=== PATIENT | male | born 1945 | race Caucasian/White ===

== ENCOUNTER → 2016-09-13 | Outpatient (CLI) | payer MEDICARE, BC, OTHER ==
[2016-09-13 07:08] LABS: ALBUMIN 3.8 GM/DL (3.2-5.2); ALBUMIN/GLOBULIN RATIO 1.36 (1.00-1.93); ALKALINE PHOSPHATASE 91 U/L (45-117); ALT/SGPT 38 U/L (12-78); ANION GAP 6 MEQ/L (8-16); AST/SGOT 22 U/L (15-37); BILIRUBIN,TOTAL 0.7 MG/DL (0.2-1.0); BLOOD UREA NITROGEN 19 MG/DL (7-18); CALCIUM LEVEL 9.1 MG/DL (8.8-10.2); CARBON DIOXIDE LEVEL 30 MEQ/L (21-32); CHLORIDE LEVEL 100 MEQ/L (98-107); CHOLESTEROL LEVEL 102 MG/DL (<200); CREATININE FOR GFR 0.95 MG/DL (0.70-1.30); GLOMERULAR FILTRATION RATE > 60.0 (>42); GLUCOSE, FASTING 223 MG/DL (83-110); POTASSIUM SERUM 4.3 MEQ/L (3.5-5.1); SODIUM LEVEL 136 MEQ/L (136-145); TOTAL PROTEIN 6.6 GM/DL (6.4-8.2); TRIGLYCERIDES LEVEL 281 MG/DL (<150)
== END ==
LOC: M LAB 06:01
PROVIDERS: ATTEND Emergency Medicine
DX: E11.9 Type 2 diabetes mellitus without complications (principal); E55.9 Vitamin D deficiency, unspecified

== ENCOUNTER → 2017-01-15 | Outpatient (CLI) | payer MEDICARE, BC, OTHER ==
[2017-01-15 07:17] LABS: ALBUMIN 3.8 GM/DL (3.2-5.2); ALBUMIN/GLOBULIN RATIO 1.19 (1.00-1.93); ALKALINE PHOSPHATASE 85 U/L (45-117); ALT/SGPT 33 U/L (12-78); ANION GAP 5 MEQ/L (8-16); AST/SGOT 16 U/L (15-37); BILIRUBIN,TOTAL 0.7 MG/DL (0.2-1.0); BLOOD UREA NITROGEN 14 MG/DL (7-18); CALCIUM LEVEL 8.9 MG/DL (8.8-10.2); CARBON DIOXIDE LEVEL 32 MEQ/L (21-32); CHLORIDE LEVEL 103 MEQ/L (98-107); CHOLESTEROL LEVEL 110 MG/DL (<200); CREATININE FOR GFR 0.88 MG/DL (0.70-1.30); GLOMERULAR FILTRATION RATE > 60.0 (>42); GLUCOSE, FASTING 178 MG/DL (83-110); SODIUM LEVEL 140 MEQ/L (136-145); TRIGLYCERIDES LEVEL 172 MG/DL (<150)
== END ==
LOC: M LAB 06:01
PROVIDERS: ATTEND Emergency Medicine
DX: E11.9 Type 2 diabetes mellitus without complications (principal); E55.9 Vitamin D deficiency, unspecified

== ENCOUNTER → 2017-02-11 | Outpatient (CLI) | payer MEDICARE, BC, OTHER | LOC: M LAB 11:49 | PROVIDERS: ATTEND Emergency Medicine | DX: N52.9 Male erectile dysfunction, unspecified (principal) ==

== ENCOUNTER → 2017-04-23 | Outpatient (CLI) | payer MEDICARE, BC, OTHER ==
[2017-04-23 07:55] LABS: ALBUMIN/GLOBULIN RATIO 1.21 (1.00-1.93); ALKALINE PHOSPHATASE 89 U/L (45-117); ALT/SGPT 35 U/L (12-78); ANION GAP 8 MEQ/L (8-16); AST/SGOT 17 U/L (7-37); BILIRUBIN,TOTAL 0.8 MG/DL (0.2-1.0); BLOOD UREA NITROGEN 18 MG/DL (7-18); CALCIUM LEVEL 8.8 MG/DL (8.8-10.2); CARBON DIOXIDE LEVEL 28 MEQ/L (21-32); CHLORIDE LEVEL 101 MEQ/L (98-107); CHOLESTEROL LEVEL 118 MG/DL (<200); CHOLESTEROL RISK RATIO 3.575 (<5); CREATININE FOR GFR 1.03 MG/DL (0.70-1.30); GLOMERULAR FILTRATION RATE > 60.0 (>42); GLUCOSE, FASTING 264 MG/DL (70-100); HDL CHOLESTEROL 33 MG/DL (>40); LDL CHOLESTEROL 36.2 MG/DL (<100); NON-HDL-C 85 MG/DL; POTASSIUM SERUM 4.1 MEQ/L (3.5-5.1); SODIUM LEVEL 137 MEQ/L (136-145); TOTAL PROTEIN 7.3 GM/DL (6.4-8.2); TRIGLYCERIDES LEVEL 244 MG/DL (<150)
[2017-04-23 09:11] LABS: ESTIMATED AVERAGE GLUCOSE 189 MG/DL (60-110); HEMOGLOBIN A1c 8.2 %
== END ==
LOC: M LAB 06:14
DX: E11.9 Type 2 diabetes mellitus without complications (principal)
CPT/HCPCS: 80053

== ENCOUNTER → 2017-08-19 | Outpatient (CLI) | payer MEDICARE, BC, OTHER ==
[2017-08-19 07:56] LABS: ALBUMIN/GLOBULIN RATIO 1.29 (1.00-1.93); ALKALINE PHOSPHATASE 84 U/L (45-117); ALT/SGPT 44 U/L (12-78); ANION GAP 8 MEQ/L (8-16); AST/SGOT 21 U/L (7-37); BILIRUBIN,TOTAL 0.6 MG/DL (0.2-1.0); BLOOD UREA NITROGEN 17 MG/DL (7-18); CALCIUM LEVEL 8.8 MG/DL (8.8-10.2); CARBON DIOXIDE LEVEL 30 MEQ/L (21-32); CHLORIDE LEVEL 104 MEQ/L (98-107); CHOLESTEROL LEVEL 94 MG/DL (<200); CHOLESTEROL RISK RATIO 2.848 (<5); CREATININE FOR GFR 0.94 MG/DL (0.70-1.30); GLOMERULAR FILTRATION RATE > 60.0 (>42); GLUCOSE, FASTING 171 MG/DL (70-100); HDL CHOLESTEROL 33 MG/DL (>40); LDL CHOLESTEROL 30.4 MG/DL (<100); NON-HDL-C 61 MG/DL; SODIUM LEVEL 142 MEQ/L (136-145); TOTAL PROTEIN 7.1 GM/DL (6.4-8.2); TRIGLYCERIDES LEVEL 153 MG/DL (<150)
[2017-08-19 10:56] LABS: ESTIMATED AVERAGE GLUCOSE 151 MG/DL (60-110); HEMOGLOBIN A1c 6.9 %
== END ==
LOC: M LAB 06:00
DX: E11.69 Type 2 diabetes mellitus with other specified complication (principal)
CPT/HCPCS: 80053

== ENCOUNTER → 2018-02-25 | Outpatient (CLI) | payer MEDICARE, BC, OTHER ==
[2018-02-25 07:11] LABS: BASO # 0.1 10^3/uL (0.0-0.2); BASO % 0.8 % (0.0-1.0); EOS # 0.3 10^3/uL (0.0-0.50); EOS % 4.5 % (0.0-3.0); HEMATOCRIT 42.7 % (42.0-52.0); HEMOGLOBIN 14.7 g/dl (13.5-17.5); IMMATURE GRANULOCYTE % 0.3 % (0-3.0); LYMPH # 1.6 10^3/uL (1.5-4.5); LYMPH % 23.1 % (24.0-44.0); MEAN CORPUSCULAR HEMOGLOBIN 32.7 pg (27.0-33.0); MEAN CORPUSCULAR HGB CONC 34.4 g/dl (32.0-36.5); MEAN CORPUSCULAR VOLUME 95.1 fl (80.0-96.0); MONO # 0.6 10^3/uL (0.0-0.8); MONO % 7.8 % (0.0-5.0); NEUTROPHILS # 4.5 10^3/uL (1.8-7.7); NEUTROPHILS % 63.5 % (36.0-66.0); PLATELET COUNT, AUTOMATED 144 10^3/uL (150-450); RED BLOOD COUNT 4.49 10^6/uL (4.30-6.10); RED CELL DISTRIBUTION WIDTH 14.1 % (11.5-14.5); WHITE BLOOD COUNT 7.1 10^3/uL (4.0-10.0)
[2018-02-25 07:26] LABS: ESTIMATED AVERAGE GLUCOSE 166 MG/DL (60-110); HEMOGLOBIN A1c 7.4 %
[2018-02-25 07:39] LABS: ANION GAP 8 MEQ/L (8-16); BLOOD UREA NITROGEN 16 MG/DL (7-18); CALCIUM LEVEL 8.6 MG/DL (8.8-10.2); CARBON DIOXIDE LEVEL 29 MEQ/L (21-32); CHLORIDE LEVEL 103 MEQ/L (98-107); CREATININE FOR GFR 0.99 MG/DL (0.70-1.30); GLOMERULAR FILTRATION RATE > 60.0 (>42); GLUCOSE, FASTING 158 MG/DL (70-100); POTASSIUM SERUM 4.4 MEQ/L (3.5-5.1); SODIUM LEVEL 140 MEQ/L (136-145)
[2018-02-25 09:31] LABS: TOTAL 25(OH) VITAMIN D 33.3 NG/ML (30.0-100.0)
== END ==
LOC: M LAB 06:06
DX: E11.69 Type 2 diabetes mellitus with other specified complication (principal); E55.9 Vitamin D deficiency, unspecified; Z79.899 Other long term (current) drug therapy
CPT/HCPCS: 83036

== ENCOUNTER 2018-06-11 07:33 | Day surgery (SDC) | payer MEDICARE, BC, OTHER ==
[~2018-06-11] VITALS: Ht 190.5 cm; Wt 92.1 kg
[~2018-06-11 07:33] MED LIST: ASPI1TAB PO; ATOR40TA75; FISH120016 PO; GABA-1171; GLIM4TAB; LEVE1INJ5; LOSA100T8 PO; METF10004; MULT1TAB10 PO; NS 1,000 ML IV ONE; TRUL0.5I; VITA50005
[2018-06-11] MEDS ORDERED: PROPOFOL 200 MG/20 ML VIAL As Ordered ONE ×2 (09:20→09:27)
[2018-06-11] MEDS ORDERED: LIDOCAINE 2% INJ 100 MG/5 ML SDV (FOR ANES.) As Ordered ONE (09:20)
--- NOTE | 2018-06-11 10:05 | ROOR ---
Patient Name: aLyo uSltana Procedure Date: 06/11/2018 9:18 AM Date of : 1945 Age: 72 Room: [facility] Gender: Male Note Status: Finalized Procedure: Colonoscopy Indications: Screening for colorectal malignant neoplasm, Screening for colon cancer: Family history of colorectal cancer in distant relative(s) 60 or older Providers: Anton Toro MD Referring MD: Jessica Tan MD Requesting Provider: Medicines: Monitored Anesthesia Care Complications: No immediate complications. Procedure: Pre-Anesthesia Assessment: - Prior to the procedure, a History and Physical was performed, and patient medications and allergies were reviewed. The patient is competent. The risks and benefits of the procedure and the sedation options and risks were discussed with the patient. All questions were answered and informed consent was obtained. Patient identification and proposed procedure were verified by the physician, the nurse and the anesthesiologist in the endoscopy suite. Mental Status Examination: alert and oriented. Airway Examination: normal oropharyngeal airway and neck mobility. Respiratory Examination: clear to auscultation. CV Examination: normal. Prophylactic Antibiotics: The patient does not require prophylactic antibiotics. Prior Anticoagulants: The patient has taken aspirin, last dose was day of procedure. ASA Grade Assessment: II - A patient with mild systemic disease. After reviewing the risks and benefits, the patient was deemed in satisfactory condition to undergo the procedure. The anesthesia plan was to use monitored anesthesia care (MAC). Immediately prior to administration of medications, the patient was re-assessed for adequacy to receive sedatives. The heart rate, respiratory rate, oxygen saturations, blood pressure, adequacy of pulmonary ventilation, and response to care were monitored throughout the procedure. The physical status of the patient was re-assessed after the procedure. The Colonoscope was introduced through the anus and advanced to the cecum, identified by appendiceal orifice and ileocecal valve. The colonoscopy was somewhat difficult due to poor bowel prep. The patient tolerated the procedure well. The quality of the bowel preparation was poor. Findings: The perianal and digital rectal examinations were normal. A 4 mm polyp was found in the transverse colon. The polyp was sessile. The polyp was removed with a hot snare. Resection and retrieval were complete. Estimated blood loss: none. No additional abnormalities were found on retroflexion. Patient with poor prep. Moderate amounts of thick liquefied stool. Lavage performed but still unable to fully clean in some areas (sigmoid, transverse colon). The retroflexed view of the distal rectum and anal verge was normal and showed no anal or rectal abnormalities. Impression: - Preparation of the colon was poor. - One 4 mm polyp in the transverse colon, removed with a hot snare. Resected and retrieved. - The distal rectum and anal verge are normal on retroflexion view. Recommendation: - Discharge patient to home (ambulatory). - Discharge patient to home (ambulatory). - Repeat colonoscopy in 1 year because the bowel preparation was suboptimal. - Telephone my office for pathology results in 1 week. Anton Toro MD Anton Toro MD 06/11/2018 10:04:44 AM This report has been signed electronically. Number of Addenda: 0 Note Initiated On: 06/11/2018 9:18 AM Estimated Blood Loss: Estimated blood loss: none.
[2018-06-11 10:36] VITALS: BP 175/79
== END 2018-06-11 10:38 | disposition home or self-care (01) ==
LOC: M OPP 07:33
PROVIDERS: ATTEND Surgery
DX: Z12.11 Encounter for screening for malignant neoplasm of colon (principal); Z80.0 Family history of malignant neoplasm of digestive organs; D12.3 Benign neoplasm of transverse colon; Z79.4 Long term (current) use of insulin; Z79.82 Long term (current) use of aspirin; Z79.899 Other long term (current) drug therapy; Z87.891 Personal history of nicotine dependence

== ENCOUNTER → 2018-07-29 | Outpatient (CLI) | payer MEDICARE, BC, OTHER ==
[~2018-07-29] MED LIST changes: -ASPI1TAB PO; +ASPI81TA26 PO; -NS 1,000 ML IV ONE
[2018-07-29 13:35] LABS: MAU/CREAT RATIO 145.6 MCG/MG (0.0-30.0)
== END ==
LOC: M LAB 12:00
PROVIDERS: ATTEND Nurse Practitioner Family
DX: E11.65 Type 2 diabetes mellitus with hyperglycemia (principal)

== ENCOUNTER → 2018-08-19 | Outpatient (CLI) | payer MEDICARE, BC, OTHER ==
[2018-08-19 06:39] LABS: BASO # 0.1 10^3/uL (0.0-0.2); BASO % 1.1 % (0.0-1.0); EOS # 0.4 10^3/uL (0.0-0.50); EOS % 4.4 % (0.0-3.0); HEMATOCRIT 41.1 % (42.0-52.0); HEMOGLOBIN 14.6 g/dl (13.5-17.5); LYMPH # 2.5 10^3/uL (1.5-4.5); LYMPH % 29.8 % (24.0-44.0); MEAN CORPUSCULAR HEMOGLOBIN 34.4 pg (27.0-33.0); MEAN CORPUSCULAR HGB CONC 35.5 g/dl (32.0-36.5); MEAN CORPUSCULAR VOLUME 96.9 fl (80.0-96.0); MONO # 0.7 10^3/uL (0.0-0.8); MONO % 8.2 % (0.0-5.0); NEUTROPHILS # 4.8 10^3/uL (1.8-7.7); NEUTROPHILS % 56.1 % (36.0-66.0); PLATELET COUNT, AUTOMATED 147 10^3/uL (150-450); RED BLOOD COUNT 4.24 10^6/uL (4.30-6.10); WHITE BLOOD COUNT 8.5 10^3/uL (4.0-10.0)
[2018-08-19 06:59] LABS: ALBUMIN 3.8 GM/DL (3.2-5.2); ALT/SGPT 33 U/L (12-78); BILIRUBIN,TOTAL 0.7 MG/DL (0.2-1.0); BLOOD UREA NITROGEN 17 MG/DL (7-18); CARBON DIOXIDE LEVEL 29 MEQ/L (21-32); CHLORIDE LEVEL 102 MEQ/L (98-107); CHOLESTEROL LEVEL 100 MG/DL (<200); CHOLESTEROL RISK RATIO 3.225 (<5); CREATININE FOR GFR 0.97 MG/DL (0.70-1.30); GLOMERULAR FILTRATION RATE > 60.0 (>42); GLUCOSE, FASTING 149 MG/DL (70-100); HDL CHOLESTEROL 31 MG/DL (>40); LDL CHOLESTEROL 25 MG/DL (<100); NON-HDL-C 69 MG/DL; POTASSIUM SERUM 4.1 MEQ/L (3.5-5.1); SODIUM LEVEL 139 MEQ/L (136-145); TOTAL PROTEIN 6.6 GM/DL (6.4-8.2); TRIGLYCERIDES LEVEL 219 MG/DL (<150)
== END ==
LOC: M LAB 06:09
PROVIDERS: ATTEND Physician Assistant
DX: E78.2 Mixed hyperlipidemia (principal)

== ENCOUNTER → 2019-09-09 | Outpatient (CLI) | payer MEDICARE, BC, OTHER ==
[~2019-09-09] MED LIST changes: -GLIM4TAB; +GLIM4TAB5
[2019-09-09 07:36] LABS: ALBUMIN 3.8 GM/DL (3.2-5.2); ALT/SGPT 35 U/L (12-78); BILIRUBIN,TOTAL 0.8 MG/DL (0.2-1.0); BLOOD UREA NITROGEN 15 MG/DL (7-18); CALCIUM LEVEL 9.2 MG/DL (8.8-10.2); CARBON DIOXIDE LEVEL 32 MEQ/L (21-32); CHLORIDE LEVEL 101 MEQ/L (98-107); CHOLESTEROL LEVEL 127 MG/DL (<200); CHOLESTEROL RISK RATIO 3.628 (<5); CREATININE FOR GFR 0.93 MG/DL (0.70-1.30); GLOMERULAR FILTRATION RATE > 60.0 (>42); GLUCOSE, FASTING 181 MG/DL (70-100); HDL CHOLESTEROL 35 MG/DL (>40); LDL CHOLESTEROL 45 MG/DL (<100); NON-HDL-C 92 MG/DL; POTASSIUM SERUM 4.1 MEQ/L (3.5-5.1); SODIUM LEVEL 139 MEQ/L (136-145); TOTAL PROTEIN 7.2 GM/DL (6.4-8.2); TRIGLYCERIDES LEVEL 236 MG/DL (<150)
[2019-09-09 09:31] LABS: TOTAL 25(OH) VITAMIN D 55.9 NG/ML (30.0-100.0)
== END ==
LOC: M LAB 06:22
PROVIDERS: ATTEND Physician Assistant
DX: I10 Essential (primary) hypertension (principal); E55.9 Vitamin D deficiency, unspecified; Z79.899 Other long term (current) drug therapy

== ENCOUNTER → 2019-10-08 | Outpatient (REF) | payer MEDICARE, OTHER ==
[2019-10-08 16:17] LABS: CREATININE, URINE 68.7 MG/DL; MAU/CREAT RATIO 206.6 MCG/MG (0.0-30.0)
== END ==
LOC: M LAB REF 14:43
PROVIDERS: ATTEND Nurse Practitioner Family
DX: E11.65 Type 2 diabetes mellitus with hyperglycemia (principal)

== ENCOUNTER → 2020-03-04 | Outpatient (CLI) | payer MEDICARE, OTHER ==
[2020-03-04 08:05] LABS: BASO # 0.1 10^3/uL (0.0-0.2); BASO % 0.8 % (0.0-1.0); EOS # 0.3 10^3/uL (0.0-0.5); EOS % 5.2 % (0.0-3.0); HEMATOCRIT 41.7 % (42.0-52.0); LYMPH # 1.7 10^3/uL (1.5-5.0); MEAN CORPUSCULAR HEMOGLOBIN 32.3 pg (27.0-33.0); MEAN CORPUSCULAR HGB CONC 33.6 g/dl (32.0-36.5); MEAN CORPUSCULAR VOLUME 96.1 fl (80.0-96.0); MONO # 0.5 10^3/uL (0.0-0.8); MONO % 8.3 % (0.0-5.0); NEUTROPHILS # 3.4 10^3/uL (1.5-8.5); NEUTROPHILS % 57.4 % (36.0-66.0); PLATELET COUNT, AUTOMATED 134 10^3/uL (150-450); RED BLOOD COUNT 4.34 10^6/uL (4.30-6.10)
[2020-03-04 08:25] LABS: ALBUMIN 3.7 GM/DL (3.2-5.2); ALT/SGPT 30 U/L (12-78); BILIRUBIN,TOTAL 0.8 MG/DL (0.2-1.0); BLOOD UREA NITROGEN 20 MG/DL (7-18); CALCIUM LEVEL 9.2 MG/DL (8.8-10.2); CARBON DIOXIDE LEVEL 29 MEQ/L (21-32); CHLORIDE LEVEL 105 MEQ/L (98-107); CHOLESTEROL LEVEL 96 MG/DL (<200); CREATININE FOR GFR 1.02 MG/DL (0.70-1.30); GLOMERULAR FILTRATION RATE > 60.0 (>42); GLUCOSE, FASTING 126 MG/DL (70-100); HDL CHOLESTEROL 32 MG/DL (>40); LDL CHOLESTEROL 33 MG/DL (<100); NON-HDL-C 64 MG/DL; POTASSIUM SERUM 4.1 MEQ/L (3.5-5.1); SODIUM LEVEL 139 MEQ/L (136-145); TOTAL PROTEIN 6.6 GM/DL (6.4-8.2); TRIGLYCERIDES LEVEL 154 MG/DL (<150)
[2020-03-04 09:56] LABS: TOTAL 25(OH) VITAMIN D 91.1 NG/ML (30.0-100.0)
[2020-03-04 10:55] LABS: HEMOGLOBIN A1c 7.6 %
[2020-03-04 11:15] LABS: MAU/CREAT RATIO 217.5 MCG/MG (0.0-30.0)
== END ==
LOC: M LAB 07:07
PROVIDERS: ATTEND Family Medicine
DX: E11.69 Type 2 diabetes mellitus with other specified complication (principal); E78.2 Mixed hyperlipidemia; G90.09 Other idiopathic peripheral autonomic neuropathy; Z79.899 Other long term (current) drug therapy

== ENCOUNTER → 2020-04-08 | Outpatient (CLI) | payer MEDICARE, OTHER ==
[2020-04-08 07:46] LABS: FREE T4 1.05 NG/DL (0.76-1.46); FREE THYROXINE INDEX 3.3 % (1.4-3.8); T UPTAKE 34 % (33-40); THYROXINE (T4) 9.6 UG/DL (4.5-12.0)
[2020-04-08 11:29] LABS: FOLATE > 24.0 NG/ML
[2020-04-08 12:22] LABS: VITAMIN B12 LEVEL 535 PG/ML
== END ==
LOC: M LAB 06:19
PROVIDERS: ATTEND Psychiatry & Neurology Neurology
DX: E07.9 Disorder of thyroid, unspecified (principal); G90.09 Other idiopathic peripheral autonomic neuropathy

== ENCOUNTER → 2020-04-26 | Outpatient (REF) | payer MEDICARE, OTHER ==
[2020-04-26 18:41] LABS: FERRITIN 66 NG/ML (26-388); IRON (FE) 101 UG/DL (65-175); PERCENT SATURATION 35.6 % (19.7-50.0); TOTAL IRON BINDING CAPACITY 284 UG/DL (250-450); TOTAL PROTEIN 7.3 GM/DL (6.4-8.2)
[2020-04-26 18:53] LABS: HEPATITIS B SURFACE ANTIBODY NEGATIVE (POSITIVE); VITAMIN B12 LEVEL 606 PG/ML
[2020-04-26 18:54] LABS: FOLATE > 24.0 NG/ML
[2020-04-26 19:04] LABS: HEPATITIS B SURFACE ANTIGEN NEGATIVE (NEGATIVE)
[2020-04-26 19:32] LABS: HEPATITIS B CORE ANTIBODY IGM NEGATIVE (NEGATIVE)
[2020-04-26 19:56] LABS: COMPLEMENT C3 111 MG/DL (90-180)
[2020-04-26 19:57] LABS: COMPLEMENT C4 19.7 MG/DL (10-40)
[2020-04-28 12:08] LABS: ALBUMIN 4.53 GM/DL (3.29-5.55); ALBUMIN % 62.1 % (55.8-66.1); ALPHA-1-GLOBULIN % 4.4 % (2.9-4.9); ALPHA-1-GLOBULINS 0.32 GM/DL (0.17-0.41); ALPHA-2-GLOBULINS 0.77 GM/DL (0.42-0.99); ALPHA-2-GLOBULINS % 10.5 % (7.1-11.8); BETA-2-GLOBULINS % 5.1 % (3.2-6.5); GAMMA GLOBULIN % 11.9 % (11.1-18.8)
[2020-04-28 12:09] LABS: BETA-1-GLOBULINS 0.44 GM/DL (0.28-0.60); BETA-2-GLOBULINS 0.37 GM/DL (0.19-0.55); GAMMA GLOBULINS 0.87 GM/DL (0.65-1.58)
[2020-04-29 16:08] LABS: ANCA-ATYPICAL <1:20 titer (Neg:<1:20); ANTI DS-DNA AB Negative (Negative); ANTINUCLEAR ANTIBODIES DIRECT Negative (Negative); CYTOPLASMIC NEUTROP AB ANCA-C <1:20 titer (Neg:<1:20); FREE KAPPA LIGHT CHAINS SERUM 19.8 mg/L (3.3-19.4); KAPPA/LAMBDA RATIO SERUM 1.04 (0.26-1.65); PERINUCLEAR AB ANCA-P <1:20 titer (Neg:<1:20)
== END ==
LOC: M LAB REF 17:07
PROVIDERS: ATTEND Internal Medicine Nephrology
DX: D64.9 Anemia, unspecified (principal); R80.9 Proteinuria, unspecified

== ENCOUNTER → 2020-05-03 | Outpatient (CLI) | payer MEDICARE, BC, OTHER ==
--- NOTE | 2020-05-03 12:37 | REP ---
INDICATION: CKD, DIABETES. COMPARISON: None. TECHNIQUE: Limited pelvic, bladder sonography. Prevoid and postvoid imaging. FINDINGS: Bladder dang are smooth is visualized. Emptying ureteral jets are observed. No bladder mass lesion is seen. Prostate dimensions by transabdominal scanning are 3.9 x 3.0 x 4.6 cm, 28 mL. Prevoid bladder volume is calculated at 225 mL. Postvoid bladder volume is 43 mL, 19%. IMPRESSION: 90% postvoid residual. Borderline prostate enlargement. Otherwise negative <Electronically signed by Santy Rae > 05/03/20 [id number]
--- NOTE | 2020-05-03 12:38 | REP ---
INDICATION: CKD, DIABETES. Proteinuria. COMPARISON: None. TECHNIQUE: Renal sonography. FINDINGS: Incidental note is made of enlarged spleen with dimensions of 15.9 cm greatest demand diameter.. Renal cortical echogenicity pattern is normal bilaterally and contours are smooth. There is no evidence of hydronephrosis, cyst, mass, or calculus in either kidney. The right kidney measures 11.1 x 6.7 x 5.8 cm. Left renal dimensions are 11.8 x 5.7 x 5.4 cm. IMPRESSION: Normal urinary tract sonography. Incidental note made of splenomegaly. <Electronically signed by Santy Rae > 05/03/20 [id number]
== END ==
LOC: M RAD 11:22
PROVIDERS: ATTEND Internal Medicine Nephrology
DX: N18.2 Chronic kidney disease, stage 2 (mild) (principal); R80.9 Proteinuria, unspecified; E11.22 Type 2 diabetes mellitus with diabetic chronic kidney disease; R16.1 Splenomegaly, not elsewhere classified

== ENCOUNTER → 2020-08-18 | Outpatient (CLI) | payer MEDICARE, BC, OTHER ==
[2020-08-18 07:36] LABS: CHOLESTEROL RISK RATIO 2.942 (<5)
== END ==
LOC: M LAB 06:19
PROVIDERS: ATTEND Internal Medicine Endocrinology, Diabetes & Metabolism
DX: E11.65 Type 2 diabetes mellitus with hyperglycemia (principal)

== ENCOUNTER → 2020-11-24 | Outpatient (CLI) | payer MEDICARE, BC, OTHER ==
[2020-11-24 07:29] LABS: CHOLESTEROL RISK RATIO 2.294 (<5)
== END ==
LOC: M LAB 06:25
PROVIDERS: ATTEND Internal Medicine Endocrinology, Diabetes & Metabolism
DX: E11.65 Type 2 diabetes mellitus with hyperglycemia (principal)

== ENCOUNTER → 2021-03-09 | Outpatient (CLI) | payer MEDICARE, BC, OTHER ==
[~2021-03-09] MED LIST changes: +AMLO1TAB24 PO; -ATOR40TA75; +ATOR40TA75 PO; +DULA3PEN PO; +ERGO500029 PO; -GABA-1171; +GABA-1171 PO; +GLIM4TAB5 PO; +HYDR12.55 PO; -LEVE1INJ5; +LEVE1INJ5 SC; +LOSA100T45 PO; +VITMTA PO
[2021-03-09 06:57] LABS: HEMOGLOBIN A1c 6.7 %
[2021-03-09 07:14] LABS: BLOOD UREA NITROGEN 18 MG/DL (7-18); CALCIUM LEVEL 9.3 MG/DL (8.8-10.2); CARBON DIOXIDE LEVEL 28 MEQ/L (21-32); CHLORIDE LEVEL 105 MEQ/L (98-107); CHOLESTEROL LEVEL 89 MG/DL (<200); CHOLESTEROL RISK RATIO 3.068 (<5); CREATININE FOR GFR 1.02 MG/DL (0.70-1.30); GLOMERULAR FILTRATION RATE > 60.0 (>42); GLUCOSE, FASTING 108 MG/DL (70-100); HDL CHOLESTEROL 29 MG/DL (>40); LDL CHOLESTEROL 28 MG/DL (<100); NON-HDL-C 60 MG/DL; POTASSIUM SERUM 4.1 MEQ/L (3.5-5.1); SODIUM LEVEL 140 MEQ/L (136-145); TRIGLYCERIDES LEVEL 158 MG/DL (<150)
== END ==
LOC: M LAB 06:16
PROVIDERS: ATTEND Family Medicine
DX: E11.69 Type 2 diabetes mellitus with other specified complication (principal)

== ENCOUNTER → 2021-03-11 | Outpatient (REF) | LOC: M LABSMTC 10:57 | PROVIDERS: ATTEND Pediatrics | DX: Z11.52 Encounter for screening for COVID-19 (principal); Z20.822 Contact with and (suspected) exposure to COVID-19 ==

== ENCOUNTER → 2021-06-02 | Outpatient (CLI) | payer MEDICARE, BC, OTHER | LOC: M LABSMTC 10:48 | PROVIDERS: ATTEND Anesthesiology | DX: Z01.812 Encounter for preprocedural laboratory examination (principal); Z20.822 Contact with and (suspected) exposure to COVID-19 ==

== ENCOUNTER 2021-07-22 09:41 | Emergency (ER) | payer MEDICARE, BC, OTHER ==
[~2021-07-22] VITALS: Ht 190.5 cm; Wt 91.0 kg
[~2021-07-22 09:41] MED LIST changes: -METF10004; +METF10004 PO
[2021-07-22 11:01] LABS: VENOUS BASE EXCESS -4.1 (-2.0-2.0); VENOUS HCO3 20.3 MEQ/L (23.0-27.0); VENOUS O2 SATURATION 79.7 % (60.0-80.0); VENOUS PARTIAL PRESSURE CO2 35.2 mmHg (38.0-50.0); VENOUS PARTIAL PRESSURE O2 45.7 mmHg (30.0-50.0); VENOUS PH 7.379 UNITS (7.330-7.430); VENOUS STANDARD HCO3 20.7 MEQ/L; VENOUS TOTAL CO2 21.4 MEQ/L (24.0-28.0)
[2021-07-22 11:07] LABS: BASO % 0.3 % (0.0-1.0); EOS % 0.3 % (0.0-3.0); HEMATOCRIT 35.7 % (42.0-52.0); HEMOGLOBIN 12.3 g/dl (13.5-17.5); LYMPH # 0.8 10^3/uL (1.5-5.0); MEAN CORPUSCULAR HGB CONC 34.5 g/dl (32.0-36.5); MEAN CORPUSCULAR VOLUME 98.6 fl (80.0-96.0); MONO # 0.5 10^3/uL (0.0-0.8); MONO % 5.3 % (2.0-8.0); NEUTROPHILS # 8.7 10^3/uL (1.5-8.5); NEUTROPHILS % 85.6 % (36.0-66.0); PLATELET COUNT, AUTOMATED 163 10^3/uL (150-450); RED BLOOD COUNT 3.62 10^6/uL (4.30-6.10); WHITE BLOOD COUNT 10.2 10^3/uL (4.0-10.0)
[2021-07-22 11:42] LABS: ALBUMIN 3.1 GM/DL (3.2-5.2); ALT/SGPT 29 U/L (12-78); BILIRUBIN,DIRECT 0.4 MG/DL (0.0-0.2); BLOOD UREA NITROGEN 33 MG/DL (7-18); CARBON DIOXIDE LEVEL 21 MEQ/L (21-32); CHLORIDE LEVEL 102 MEQ/L (98-107); CK-MB VALUE MASS 5.4 NG/ML (<3.6); CREATININE FOR GFR 1.12 MG/DL (0.70-1.30); GLOMERULAR FILTRATION RATE > 60.0 (>42); GLUCOSE, FASTING 252 MG/DL (70-100); MB/CK RELATIVE INDEX 5.45 (< OR =4); NT-PRO BNP 2847 PG/ML (<450); POTASSIUM SERUM 4.2 MEQ/L (3.5-5.1); SODIUM LEVEL 136 MEQ/L (136-145); THYROXINE (T4) 6.3 UG/DL (4.5-12.0)
[2021-07-22 12:12] LABS: INR 1.15; PROTHROMBIN TIME 15.1 SECONDS (12.7-14.5)
[2021-07-22 12:13] LABS: PARTIAL THROMBOPLASTIN TIME 38.1 SECONDS (25.9-37.0)
[2021-07-22] MEDS ORDERED: cefTRIAXone SOD 2 GM in D5W MINI-BAG PLUS 50 ML IV ONE (12:30)
[2021-07-22 12:53] LABS: CK-MB VALUE MASS 5.5 NG/ML (<3.6); MB/CK RELATIVE INDEX 5.79 (< OR =4)
[2021-07-22] MEDS ORDERED: ASPIRIN 81 MG CHEW TABLET PO ONE (13:15)
[2021-07-22] MEDS ORDERED: HEPARIN DRIP 25,000 UNITS in IV 1 EA IV SCH (13:15)
[2021-07-22] MEDS ORDERED: HEPARIN SOD (PORCINE) 5000UNITS/ML 1ML VIAL/SYRINGE IV ONE (13:15)
[2021-07-22] MEDS ORDERED: FUROSEMIDE 40MG/4ML VIAL (J1940) IV ONE (14:25)
[2021-07-22] MEDS ORDERED: NITROGLYCERIN 2% OINT 1 GM *U/D* PKT TOP ONE (14:25)
[2021-07-22 14:58] LABS: ABG HCO3 16.2 MEQ/L (22.0-26.0); ABG O2 SATURATION 90.7 % (95.0-99.0); ABG PARTIAL PRESSURE CO2 33.3 mmHg (35.0-45.0); ABG PARTIAL PRESSURE O2 66.2 mmHg (75.0-100.0); ABG STANDARD HCO3 17.2 MEQ/L (22.0-26.0); ABG TOTAL CO2 17.3 MEQ/L (23.0-31.0); ABG pH (ARTERIAL) 7.306 UNITS (7.350-7.450)
[2021-07-22 17:22] VITALS: BP 142/88
== END 2021-07-22 17:29 | disposition short-term general hospital (02) ==
LOC: M ED 09:41
DX: I21.09 ST elevation (STEMI) myocardial infarction involving other coronary artery of anterior wall (principal); E11.9 Type 2 diabetes mellitus without complications; I10 Essential (primary) hypertension; E78.5 Hyperlipidemia, unspecified; Z87.891 Personal history of nicotine dependence; Z79.899 Other long term (current) drug therapy; Z79.82 Long term (current) use of aspirin; Z79.4 Long term (current) use of insulin; Z79.84 Long term (current) use of oral hypoglycemic drugs
CPT/HCPCS: 36600; 51702; 71045; 71250; 80048; 80076; 82550; 82553; 82803; 83605; 83880; 84145; 84436; 84443; 84484; 85025; 85610; 85730; 87040; 87798; 93005; 93041; 93306; 94660; 94760; 96365; 96366; 96367; 96375; 99285; J0696; J1644; J1940

== ENCOUNTER → 2021-08-16 | Outpatient (REF) ==
[2021-08-16 09:35] LABS: INR 1.4; PROTHROMBIN TIME 17.6 SECONDS (12.7-14.5)
== END ==
LOC: SKLAB7 07:00
PROVIDERS: ATTEND Neuromusculoskeletal Medicine & OMM
DX: Z95.1 Presence of aortocoronary bypass graft (principal)

== ENCOUNTER → 2021-08-17 | Outpatient (REF) ==
[2021-08-17 11:47] LABS: INR 1.49; PROTHROMBIN TIME 18.4 SECONDS (12.7-14.5)
== END ==
LOC: SKLAB7 11:24
PROVIDERS: ATTEND Neuromusculoskeletal Medicine & OMM
DX: I48.91 Unspecified atrial fibrillation (principal)

== ENCOUNTER → 2021-08-18 | Outpatient (REF) ==
[2021-08-18 09:32] LABS: INR 1.48; PROTHROMBIN TIME 18.3 SECONDS (12.7-14.5)
== END ==
LOC: SKLAB7 07:00
PROVIDERS: ATTEND Neuromusculoskeletal Medicine & OMM
DX: I48.91 Unspecified atrial fibrillation (principal); Z79.01 Long term (current) use of anticoagulants

== ENCOUNTER → 2021-08-19 | Outpatient (REF) ==
[2021-08-19 08:29] LABS: INR 1.64; PROTHROMBIN TIME 19.8 SECONDS (12.7-14.5)
== END ==
LOC: SKLAB7 07:00
PROVIDERS: ATTEND Neuromusculoskeletal Medicine & OMM
DX: I48.91 Unspecified atrial fibrillation (principal); Z79.01 Long term (current) use of anticoagulants

== ENCOUNTER → 2021-08-20 | Outpatient (REF) ==
[2021-08-20 09:49] LABS: INR 1.86; PROTHROMBIN TIME 21.8 SECONDS (12.7-14.5)
== END ==
LOC: SKLAB7 08:25
PROVIDERS: ATTEND Neuromusculoskeletal Medicine & OMM
DX: I48.91 Unspecified atrial fibrillation (principal); Z79.01 Long term (current) use of anticoagulants

== ENCOUNTER → 2021-08-21 | Outpatient (REF) ==
[2021-08-21 09:51] LABS: INR 2.07; PROTHROMBIN TIME 23.7 SECONDS (12.7-14.5)
== END ==
LOC: SKLAB7 07:00
PROVIDERS: ATTEND Neuromusculoskeletal Medicine & OMM
DX: I48.91 Unspecified atrial fibrillation (principal); Z79.01 Long term (current) use of anticoagulants

== ENCOUNTER → 2021-08-22 | Outpatient (REF) ==
[2021-08-22 18:02] LABS: INR 1.97; PROTHROMBIN TIME 22.8 SECONDS (12.7-14.5)
== END ==
LOC: SKLAB7 07:00
PROVIDERS: ATTEND Neuromusculoskeletal Medicine & OMM
DX: I48.91 Unspecified atrial fibrillation (principal)

== ENCOUNTER → 2021-08-23 | Outpatient (REF) ==
[2021-08-23 13:54] LABS: PROTHROMBIN TIME 23.1 SECONDS (12.7-14.5)
== END ==
LOC: SKLAB7 08:27
PROVIDERS: ATTEND Neuromusculoskeletal Medicine & OMM
DX: I48.91 Unspecified atrial fibrillation (principal)

== ENCOUNTER → 2021-08-24 | Outpatient (REF) ==
[2021-08-24 06:56] LABS: HEMATOCRIT 34.1 % (42.0-52.0); MEAN CORPUSCULAR HEMOGLOBIN 32.2 pg (27.0-33.0); MEAN CORPUSCULAR HGB CONC 32.3 g/dl (32.0-36.5); MEAN CORPUSCULAR VOLUME 99.7 fl (80.0-96.0); PLATELET COUNT, AUTOMATED 221 10^3/uL (150-450); RED BLOOD COUNT 3.42 10^6/uL (4.30-6.10); WHITE BLOOD COUNT 8.3 10^3/uL (4.0-10.0)
[2021-08-24 06:59] LABS: INR 2.35; PROTHROMBIN TIME 26.1 SECONDS (12.7-14.5)
[2021-08-24 07:07] LABS: BLOOD UREA NITROGEN 26 MG/DL (7-18); CALCIUM LEVEL 9.2 MG/DL (8.8-10.2); CARBON DIOXIDE LEVEL 28 MEQ/L (21-32); CHLORIDE LEVEL 100 MEQ/L (98-107); CREATININE FOR GFR 0.99 MG/DL (0.70-1.30); GLOMERULAR FILTRATION RATE > 60.0 (>42); GLUCOSE, FASTING 89 MG/DL (70-100); MAGNESIUM LEVEL 1.9 MG/DL (1.8-2.4); POTASSIUM SERUM 4.8 MEQ/L (3.5-5.1); SODIUM LEVEL 136 MEQ/L (136-145)
== END ==
LOC: SKLAB7 07:00
PROVIDERS: ATTEND Neuromusculoskeletal Medicine & OMM
DX: I48.91 Unspecified atrial fibrillation (principal); D64.9 Anemia, unspecified; I50.9 Heart failure, unspecified

== ENCOUNTER → 2021-08-25 | Outpatient (REF) ==
[2021-08-25 08:18] LABS: INR 2.29; PROTHROMBIN TIME 25.6 SECONDS (12.7-14.5)
== END ==
LOC: SKLAB7 07:00
PROVIDERS: ATTEND Neuromusculoskeletal Medicine & OMM
DX: I48.91 Unspecified atrial fibrillation (principal)

== ENCOUNTER → 2021-08-26 | Outpatient (CLI) | payer MEDICARE, BC, OTHER ==
[2021-08-26 09:27] LABS: INR 2.53; PROTHROMBIN TIME 27.6 SECONDS (12.7-14.5)
== END ==
LOC: M LAB 07:30
PROVIDERS: ATTEND Neuromusculoskeletal Medicine & OMM
DX: Z79.01 Long term (current) use of anticoagulants (principal)

== ENCOUNTER → 2021-08-28 | Outpatient (REF) | LOC: SKLAB7 07:00 | PROVIDERS: ATTEND Neuromusculoskeletal Medicine & OMM | DX: I48.91 Unspecified atrial fibrillation (principal); Z53.9 Procedure and treatment not carried out, unspecified reason ==

== ENCOUNTER → 2021-08-29 | Outpatient (REF) ==
[2021-08-29 10:11] LABS: INR 2.35; PROTHROMBIN TIME 26.1 SECONDS (12.7-14.5)
== END ==
LOC: SKLAB7 07:17
PROVIDERS: ATTEND Neuromusculoskeletal Medicine & OMM
DX: I48.91 Unspecified atrial fibrillation (principal)

== ENCOUNTER → 2021-08-30 | Outpatient (REF) | LOC: SKLAB7 10:41 | PROVIDERS: ATTEND Neuromusculoskeletal Medicine & OMM | DX: I51.7 Cardiomegaly (principal); Z97.8 Presence of other specified devices ==

== ENCOUNTER → 2021-09-11 | Outpatient (REF) | payer MEDICARE, OTHER ==
[2021-09-11 12:36] LABS: ALBUMIN 3.4 GM/DL (3.2-5.2); ALT/SGPT 20 U/L (12-78); BILIRUBIN,TOTAL 0.5 MG/DL (0.2-1.0); BLOOD UREA NITROGEN 34 MG/DL (7-18); CALCIUM LEVEL 10.1 MG/DL (8.8-10.2); CARBON DIOXIDE LEVEL 28 MEQ/L (21-32); CHLORIDE LEVEL 102 MEQ/L (98-107); CHOLESTEROL LEVEL 97 MG/DL (<200); CHOLESTEROL RISK RATIO 3.129 (<5); CREATININE FOR GFR 0.94 MG/DL (0.70-1.30); GLOMERULAR FILTRATION RATE > 60.0 (>42); GLUCOSE, FASTING 117 MG/DL (70-100); HDL CHOLESTEROL 31 MG/DL (>40); LDL CHOLESTEROL 48 MG/DL (<100); NON-HDL-C 66 MG/DL; POTASSIUM SERUM 5.1 MEQ/L (3.5-5.1); SODIUM LEVEL 138 MEQ/L (136-145); TOTAL PROTEIN 6.7 GM/DL (6.4-8.2); TRIGLYCERIDES LEVEL 88 MG/DL (<150)
[2021-09-11 12:42] LABS: CREATININE, URINE 88.7 MG/DL; MALB URINE SIEMENS 90.7 MG/L; MAU/CREAT RATIO 102.2 MCG/MG (0.0-30.0)
[2021-09-11 16:23] LABS: HEMOGLOBIN A1c 5.8 %
== END ==
LOC: M LABDRAWC 11:01
PROVIDERS: ATTEND Nurse Practitioner Family
DX: I10 Essential (primary) hypertension (principal); E78.2 Mixed hyperlipidemia; E11.69 Type 2 diabetes mellitus with other specified complication

== ENCOUNTER → 2021-09-11 | Outpatient (REF) | payer MEDICARE, OTHER ==
[2021-09-11 12:36] LABS: INR 2.24; PROTHROMBIN TIME 25.2 SECONDS (12.7-14.5)
== END ==
LOC: M SHH 11:46
PROVIDERS: ATTEND Internal Medicine Cardiovascular Disease
DX: I05.9 Rheumatic mitral valve disease, unspecified (principal); E78.2 Mixed hyperlipidemia; I10 Essential (primary) hypertension; E11.69 Type 2 diabetes mellitus with other specified complication

== ENCOUNTER → 2021-09-18 | Outpatient (REF) | payer MEDICARE, OTHER | LOC: M SHH 15:41 | PROVIDERS: ATTEND Internal Medicine Cardiovascular Disease | DX: I34.8 Other nonrheumatic mitral valve disorders (principal); Z53.9 Procedure and treatment not carried out, unspecified reason ==

== ENCOUNTER → 2021-09-19 | Outpatient (CLI) | payer MEDICARE, OTHER ==
[2021-09-19 15:48] LABS: INR 2.22
== END ==
LOC: M LAB 14:24
PROVIDERS: ATTEND Internal Medicine Cardiovascular Disease
DX: I34.9 Nonrheumatic mitral valve disorder, unspecified (principal)

== ENCOUNTER → 2021-09-28 | Outpatient (REF) | payer MEDICARE, OTHER ==
[2021-09-28 16:04] LABS: BASO # 0.1 10^3/uL (0.0-0.2); BASO % 0.9 % (0.0-1.0); EOS # 0.1 10^3/uL (0.0-0.5); EOS % 1.2 % (0.0-3.0); HEMATOCRIT 37.6 % (42.0-52.0); HEMOGLOBIN 12.2 g/dl (13.5-17.5); LYMPH # 1.2 10^3/uL (1.5-5.0); LYMPH % 15.7 % (24.0-44.0); MEAN CORPUSCULAR HGB CONC 32.4 g/dl (32.0-36.5); MEAN CORPUSCULAR VOLUME 95.7 fl (80.0-96.0); MONO # 0.6 10^3/uL (0.0-0.8); MONO % 7.8 % (2.0-8.0); NEUTROPHILS # 5.6 10^3/uL (1.5-8.5); PLATELET COUNT, AUTOMATED 227 10^3/uL (150-450); RED BLOOD COUNT 3.93 10^6/uL (4.30-6.10); WHITE BLOOD COUNT 7.5 10^3/uL (4.0-10.0)
[2021-09-28 16:19] LABS: ALBUMIN 3.9 GM/DL (3.2-5.2); ALT/SGPT 28 U/L (12-78); BILIRUBIN,TOTAL 0.6 MG/DL (0.2-1.0); BLOOD UREA NITROGEN 33 MG/DL (7-18); CALCIUM LEVEL 10.1 MG/DL (8.8-10.2); CARBON DIOXIDE LEVEL 31 MEQ/L (21-32); CHLORIDE LEVEL 97 MEQ/L (98-107); CREATININE FOR GFR 1.09 MG/DL (0.70-1.30); GLOMERULAR FILTRATION RATE > 60.0 (>42); GLUCOSE, FASTING 255 MG/DL (70-100); SODIUM LEVEL 133 MEQ/L (136-145); TOTAL PROTEIN 6.3 GM/DL (6.4-8.2)
== END ==
LOC: M SHH 15:37
PROVIDERS: ATTEND Nurse Practitioner Family
DX: E11.65 Type 2 diabetes mellitus with hyperglycemia (principal); I05.9 Rheumatic mitral valve disease, unspecified

== ENCOUNTER → 2021-09-28 | Outpatient (REF) | payer MEDICARE, OTHER ==
[2021-09-28 16:14] LABS: INR 2.76; PROTHROMBIN TIME 29.5 SECONDS (12.7-14.5)
== END ==
LOC: M SHH 15:39
PROVIDERS: ATTEND Internal Medicine Cardiovascular Disease
DX: I05.9 Rheumatic mitral valve disease, unspecified (principal)

== ENCOUNTER → 2021-10-06 | Outpatient (REF) | payer MEDICARE, OTHER ==
[2021-10-06 13:09] LABS: INR 1.64; PROTHROMBIN TIME 19.8 SECONDS (12.7-14.5)
== END ==
LOC: M SHH 12:38
PROVIDERS: ATTEND Internal Medicine Cardiovascular Disease
DX: I34.9 Nonrheumatic mitral valve disorder, unspecified (principal)

== ENCOUNTER → 2021-10-19 | Outpatient (REF) | payer MEDICARE, OTHER ==
[2021-10-19 17:36] LABS: INR 1.54
== END ==
LOC: M SHH 16:38
PROVIDERS: ATTEND Internal Medicine Cardiovascular Disease
DX: I34.9 Nonrheumatic mitral valve disorder, unspecified (principal)

== ENCOUNTER → 2021-10-27 | Outpatient (REF) | payer MEDICARE, OTHER ==
[2021-10-27 16:03] LABS: INR 2.18; PROTHROMBIN TIME 24.6 SECONDS (12.7-14.5)
== END ==
LOC: M SHH 15:28
PROVIDERS: ATTEND Internal Medicine Cardiovascular Disease
DX: I34.9 Nonrheumatic mitral valve disorder, unspecified (principal)

== ENCOUNTER → 2021-11-03 | Outpatient (REF) | payer MEDICARE, OTHER ==
[2021-11-03 17:21] LABS: INR 2.14; PROTHROMBIN TIME 24.3 SECONDS (12.7-14.5)
== END ==
LOC: M SHH 14:57
PROVIDERS: ATTEND Internal Medicine Cardiovascular Disease
DX: I05.9 Rheumatic mitral valve disease, unspecified (principal)

== ENCOUNTER → 2021-11-09 | Outpatient (REF) | payer MEDICARE, OTHER ==
[2021-11-09 14:07] LABS: INR 1.71; PROTHROMBIN TIME 20.5 SECONDS (12.7-14.5)
== END ==
LOC: M SHH 13:25
PROVIDERS: ATTEND Internal Medicine Cardiovascular Disease
DX: I34.9 Nonrheumatic mitral valve disorder, unspecified (principal)

== ENCOUNTER → 2021-11-17 | Outpatient (REF) | payer MEDICARE, OTHER ==
[2021-11-17 14:59] LABS: INR 1.51; PROTHROMBIN TIME 18.7 SECONDS (12.7-14.5)
== END ==
LOC: M SHH 14:22
PROVIDERS: ATTEND Internal Medicine Cardiovascular Disease
DX: I34.0 Nonrheumatic mitral (valve) insufficiency (principal)

== ENCOUNTER → 2021-11-24 | Outpatient (REF) | payer MEDICARE, OTHER ==
[2021-11-24 17:12] LABS: INR 2.43; PROTHROMBIN TIME 26.8 SECONDS (12.7-14.5)
== END ==
LOC: M SHH 16:38
PROVIDERS: ATTEND Internal Medicine Cardiovascular Disease
DX: I05.9 Rheumatic mitral valve disease, unspecified (principal)

== ENCOUNTER → 2021-12-01 | Outpatient (REF) | payer MEDICARE, OTHER ==
[2021-12-01 15:11] LABS: INR 2.16; PROTHROMBIN TIME 24.5 SECONDS (12.7-14.5)
== END ==
LOC: M SHH 14:26
PROVIDERS: ATTEND Internal Medicine Cardiovascular Disease
DX: I34.9 Nonrheumatic mitral valve disorder, unspecified (principal)

== ENCOUNTER → 2021-12-08 | Outpatient (REF) | payer MEDICARE, OTHER ==
[2021-12-08 16:57] LABS: INR 2.08; PROTHROMBIN TIME 23.8 SECONDS (12.7-14.5)
== END ==
LOC: M SHH 16:14
PROVIDERS: ATTEND Internal Medicine Cardiovascular Disease
DX: I34.9 Nonrheumatic mitral valve disorder, unspecified (principal)

== ENCOUNTER → 2021-12-19 | Outpatient (REF) | payer MEDICARE, OTHER ==
[2021-12-25 19:30] LABS: MALB URINE SIEMENS 15.3 MG/L; MAU/CREAT RATIO 12.9 MCG/MG (0.0-30.0)
== END ==
LOC: M LAB REF 17:03
PROVIDERS: ATTEND Internal Medicine Nephrology
DX: R80.9 Proteinuria, unspecified (principal)

== ENCOUNTER → 2021-12-27 | Outpatient (CLI) | payer MEDICARE, OTHER ==
[2021-12-27 07:21] LABS: INR 1.1; PROTHROMBIN TIME 14.6 SECONDS (12.7-14.5)
== END ==
LOC: M LAB 06:00
PROVIDERS: ATTEND Nurse Practitioner
DX: Z79.01 Long term (current) use of anticoagulants (principal)

== ENCOUNTER → 2022-01-04 | Outpatient (REF) | payer MEDICARE, OTHER ==
[2022-01-04 15:08] LABS: INR 1.11; PROTHROMBIN TIME 14.7 SECONDS (12.7-14.5)
== END ==
LOC: M SHH 14:31
PROVIDERS: ATTEND Internal Medicine Cardiovascular Disease
DX: I05.9 Rheumatic mitral valve disease, unspecified (principal)

== ENCOUNTER → 2022-01-11 | Outpatient (CLI) | payer MEDICARE, OTHER ==
[2022-01-11 10:35] LABS: INR 1.45; PROTHROMBIN TIME 17.9 SECONDS (12.5-14.5)
== END ==
LOC: M WUC 08:15
PROVIDERS: ATTEND Internal Medicine Cardiovascular Disease
DX: I48.91 Unspecified atrial fibrillation (principal)

== ENCOUNTER → 2022-01-18 | Outpatient (CLI) | payer MEDICARE, OTHER ==
[2022-01-18 10:54] LABS: INR 1.57; PROTHROMBIN TIME 19.1 SECONDS (12.5-14.5)
== END ==
LOC: M WUC 08:00
PROVIDERS: ATTEND Internal Medicine Cardiovascular Disease
DX: I48.91 Unspecified atrial fibrillation (principal)

== ENCOUNTER → 2022-01-25 | Outpatient (CLI) | payer MEDICARE, OTHER ==
[2022-01-25 07:18] LABS: INR 2.26; PROTHROMBIN TIME 25.3 SECONDS (12.5-14.5)
== END ==
LOC: M LAB 06:00
PROVIDERS: ATTEND Internal Medicine Cardiovascular Disease
DX: I48.91 Unspecified atrial fibrillation (principal)

== ENCOUNTER → 2022-02-01 | Outpatient (CLI) | payer MEDICARE, OTHER ==
[2022-02-01 11:35] LABS: INR 2.03; PROTHROMBIN TIME 23.3 SECONDS (12.5-14.5)
== END ==
LOC: M LAB 10:56
PROVIDERS: ATTEND Internal Medicine Cardiovascular Disease
DX: I48.91 Unspecified atrial fibrillation (principal)

== ENCOUNTER → 2022-02-08 | Outpatient (CLI) | payer MEDICARE, OTHER ==
[2022-02-08 08:42] LABS: INR 2.35; PROTHROMBIN TIME 26.1 SECONDS (12.5-14.5)
== END ==
LOC: M LAB 07:32
PROVIDERS: ATTEND Internal Medicine Cardiovascular Disease
DX: I05.9 Rheumatic mitral valve disease, unspecified (principal)

== ENCOUNTER → 2022-11-14 | Outpatient (CLI) | payer MEDICARE, OTHER, BC ==
[~2022-11-14] MED LIST changes: +INSU100I6 SC; -LEVE1INJ5 SC; -LOSA100T45 PO; +LOSA100T46 PO
[2022-11-14 07:49] LABS: GLOMERULAR FILTRATION RATE > 60.0 (>42)
== END ==
LOC: M LAB 06:41
PROVIDERS: ATTEND Urology
DX: R97.20 Elevated prostate specific antigen [PSA] (principal); D41.02 Neoplasm of uncertain behavior of left kidney
CPT/HCPCS: 36415; 82565; G0103

== ENCOUNTER 2023-02-17 06:38 | Emergency (ER) | payer MEDICARE, BC, OTHER ==
[~2023-02-17] VITALS: Ht 190.5 cm; Wt 97.0 kg
[2023-02-17 07:07] LABS: VENOUS BASE EXCESS -4.4 (-2.0-2.0); VENOUS HCO3 20.4 MMOL/L (23.0-27.0); VENOUS O2 SATURATION 78.4 % (60.0-80.0); VENOUS PARTIAL PRESSURE CO2 36.4 mmHg (38.0-50.0); VENOUS PARTIAL PRESSURE O2 44.2 mmHg (30.0-50.0); VENOUS PH 7.366 UNITS (7.330-7.430); VENOUS STANDARD HCO3 20.5 MMOL/L; VENOUS TOTAL CO2 21.5 MMOL/L (24.0-28.0)
[2023-02-17 07:08] LABS: BASO % 0.4 % (0.0-1.0); EOS # 0.2 10^3/uL (0.0-0.5); EOS % 1.5 % (0.0-3.0); HEMATOCRIT 36.6 % (42.0-52.0); HEMOGLOBIN 12.2 g/dl (13.5-17.5); LYMPH # 0.3 10^3/uL (1.5-5.0); LYMPH % 3.2 % (24.0-44.0); MEAN CORPUSCULAR HEMOGLOBIN 32.6 pg (27.0-33.0); MEAN CORPUSCULAR HGB CONC 33.3 g/dl (32.0-36.5); MEAN CORPUSCULAR VOLUME 97.9 fl (80.0-96.0); MONO # 0.8 10^3/uL (0.0-0.8); MONO % 8.4 % (2.0-8.0); NEUTROPHILS # 8.6 10^3/uL (1.5-8.5); NEUTROPHILS % 86.2 % (36.0-66.0); PLATELET COUNT, AUTOMATED 146 10^3/uL (150-450); RED BLOOD COUNT 3.74 10^6/uL (4.30-6.10)
[2023-02-17] MEDS ORDERED: ACETAMINOPHEN 325 MG TAB PO ONE (07:20)
[2023-02-17 07:22] LABS: ALBUMIN 3.6 G/DL (3.2-5.2); ALKALINE PHOSPHATASE 107 U/L (46-116); ALT/SGPT 14 U/L (7.0-40); AST/SGOT 12 U/L (<34); BILIRUBIN,DIRECT 0.3 MG/DL (<0.4); BILIRUBIN,TOTAL 0.9 MG/DL (0.3-1.2); BLOOD UREA NITROGEN 31 MG/DL (9-23); CALCIUM LEVEL 9.1 MG/DL (8.3-10.6); CARBON DIOXIDE LEVEL 21 MMOL/L (20-31); CHLORIDE LEVEL 101 MMOL/L (98-107); CREATININE FOR GFR 0.91 MG/DL (0.70-1.30); GLOMERULAR FILTRATION RATE > 60.0 (>42); GLUCOSE, FASTING 264 MG/DL (74-106); POTASSIUM SERUM 4.9 MMOL/L (3.5-5.1); SODIUM LEVEL 134 MMOL/L (136-145); TOTAL PROTEIN 6.8 G/DL (5.7-8.2)
[2023-02-17 07:24] LABS: THYROID STIMULATING HORMONE 0.912 uIU/ML (0.55-4.78)
[2023-02-17] MEDS ORDERED: NIRMATRELVIR/RITONAVIR CO-PACK (EMERGENCY USE AUTH) PO SCH ×2 (09:00)
[2023-02-17] MEDS ORDERED: MED REC IN PROGRESS XX SCH (09:05)
[2023-02-17] MEDS ORDERED: SPIR-10 PO (09:21)
[2023-02-17] MEDS ORDERED: CARV6.25 PO (09:21)
[2023-02-17] MEDS ORDERED: FURO40TA2 PO (09:21)
[2023-02-17] MEDS ORDERED: LISI20TA33 PO (09:21)
[2023-02-17] MEDS ORDERED: HOME MED LIST COMPLETE! XX SCH (09:30)
[2023-02-17] MEDS ORDERED: INSUDET SC (09:54)
[2023-02-17] MEDS ORDERED: FARX1TAB3 PO (09:54)
[2023-02-17] MEDS ORDERED: DOCU-153 PO (09:54)
[2023-02-17] MEDS ORDERED: META28.32 PO (09:56)
[2023-02-17 10:14] VITALS: BP 130/65; TEMP 96.7; O2SAT 99
== END 2023-02-17 10:19 | disposition home or self-care (01) ==
LOC: EDBD 06:38 → M ED 06:38
DX: U07.1 COVID-19 (principal); I51.9 Heart disease, unspecified; E11.9 Type 2 diabetes mellitus without complications; I10 Essential (primary) hypertension; E78.5 Hyperlipidemia, unspecified; Z79.4 Long term (current) use of insulin; Z79.82 Long term (current) use of aspirin; Z79.899 Other long term (current) drug therapy

== ENCOUNTER 2023-03-01 11:17 | Observation (INO) | payer MEDICARE, BC, OTHER ==
[~2023-03-01] VITALS: Ht 190.5 cm; Wt 79.1 kg
[~2023-03-01 11:17] MED LIST changes: +CARV6.25 PO; +DOCU-153 PO; +FARX1TAB3 PO; +FURO40TA2 PO; +INSUDET SC; +LISI20TA33 PO; +META28.32 PO; +SPIR-10 PO
[2023-03-01 12:31] LABS: VENOUS BASE EXCESS -7.8 (-2.0-2.0); VENOUS HCO3 19.9 MMOL/L (23.0-27.0); VENOUS O2 SATURATION 31.1 % (60.0-80.0); VENOUS PARTIAL PRESSURE O2 21.7 mmHg (30.0-50.0); VENOUS PH 7.226 UNITS (7.330-7.430); VENOUS STANDARD HCO3 16.9 MMOL/L; VENOUS TOTAL CO2 21.4 MMOL/L (24.0-28.0)
[2023-03-01 12:41] LABS: BASO % 0.4 % (0.0-1.0); EOS # 0.1 10^3/uL (0.0-0.5); EOS % 1.3 % (0.0-3.0); HEMATOCRIT 37.8 % (42.0-52.0); HEMOGLOBIN 12.8 g/dl (13.5-17.5); LYMPH # 1.1 10^3/uL (1.5-5.0); LYMPH % 13.3 % (24.0-44.0); MEAN CORPUSCULAR HEMOGLOBIN 33.2 pg (27.0-33.0); MEAN CORPUSCULAR HGB CONC 33.9 g/dl (32.0-36.5); MEAN CORPUSCULAR VOLUME 97.9 fl (80.0-96.0); MONO # 0.8 10^3/uL (0.0-0.8); MONO % 9.4 % (2.0-8.0); PLATELET COUNT, AUTOMATED 244 10^3/uL (150-450); RED BLOOD COUNT 3.86 10^6/uL (4.30-6.10)
[2023-03-01] MEDS ORDERED: NS 500 ML IV ONE (12:55)
[2023-03-01 13:07] LABS: ALBUMIN 3.9 G/DL (3.2-5.2); ALKALINE PHOSPHATASE 114 U/L (46-116); ALT/SGPT 23 U/L (7.0-40); AST/SGOT 14 U/L (<34); BILIRUBIN,DIRECT 0.2 MG/DL (<0.4); BILIRUBIN,TOTAL 0.6 MG/DL (0.3-1.2); BLOOD UREA NITROGEN 66 MG/DL (9-23); CALCIUM LEVEL 10.1 MG/DL (8.3-10.6); CARBON DIOXIDE LEVEL 20 MMOL/L (20-31); CHLORIDE LEVEL 102 MMOL/L (98-107); GLOMERULAR FILTRATION RATE > 60.0 (>42); GLUCOSE, FASTING 139 MG/DL (74-106); POTASSIUM SERUM 5.8 MMOL/L (3.5-5.1); SODIUM LEVEL 134 MMOL/L (136-145); TOTAL PROTEIN 7.5 G/DL (5.7-8.2)
[2023-03-01 13:09] LABS: THYROID STIMULATING HORMONE 1.958 uIU/ML (0.55-4.78)
[2023-03-01 13:20] LABS: OSMOLALITY SERUM 310 MOSM/KG (280-301)
[2023-03-01] MEDS ORDERED: CALCIUM CHLORIDE 10% 1 GM/10 ML SYR IV ONE (17:20)
[2023-03-01] MEDS ORDERED: SODIUM BICARBONATE 8.4% INJ 50ML SYRINGE IV ONE (17:20)
[2023-03-01] MEDS ORDERED: PATIROMER SORBITEX CALCIUM 8.4 GM POWDER PACKET (VELTASSA) PO ONE (17:20)
[2023-03-01] MEDS ORDERED: HumuLIN R (REGULAR) INSULIN (NovoLIN R) **100U/ML** PER UNIT IV ONE (17:20)
[2023-03-01] MEDS ORDERED: DEXTROSE 50% 50ML SYRINGE IV STA (17:30)
[2023-03-01] MEDS ORDERED: MED REC IN PROGRESS XX SCH (17:45)
[2023-03-01] MEDS ORDERED: GLUCAGON INJ 1MG VIAL SC PRN (18:10)
[2023-03-01] MEDS ORDERED: DEXTROSE 50% 50ML SYRINGE IV PRN (18:10)
[2023-03-01] MEDS ORDERED: GLUCOSE 4GM CHEW TABLET PO PRN (18:10)
[2023-03-01] MEDS ORDERED: ONDANSETRON 4MG TAB PO PRN (18:15)
[2023-03-01] MEDS ORDERED: FUROSEMIDE 100MG/10ML VIAL IV ONE (18:35)
[2023-03-01] MEDS ORDERED: HOME MED LIST COMPLETE! XX SCH (19:40)
[2023-03-01 20:15] VITALS: BP 115/55; TEMP 97.7; O2SAT 99
[2023-03-01] MEDS ORDERED: ATORVASTATIN 20 MG TAB PO SCH (21:00)
[2023-03-01] MEDS ORDERED: ASPIRIN 81MG ENTERIC TABLET PO SCH (21:00)
[2023-03-01] MEDS ORDERED: INSULIN LISPRO (NovoLOG) PER UNIT SC SCH (21:00)
[2023-03-01 22:16] LABS: POTASSIUM SERUM 4.5 MMOL/L (3.5-5.1)
[2023-03-01 23:02] VITALS: BP 108/49
[2023-03-01] MEDS: CARVedilol 6.25 MG TAB PO SCH (23:02)
[2023-03-02] MEDS: HEPARIN SOD (PORCINE) 5000UNITS/ML 1ML VIAL/SYRINGE SC SCH ×2 (05:26→14:35)
[2023-03-02 06:00] VITALS: BP 150/66; TEMP 97.5; O2SAT 98
[2023-03-02 06:50] LABS: CALCIUM LEVEL 10.2 MG/DL (8.3-10.6); CREATININE FOR GFR 1.28 MG/DL (0.70-1.30); GLOMERULAR FILTRATION RATE 58.2 (>42); MAGNESIUM LEVEL 1.5 MG/DL (1.8-2.4); POTASSIUM SERUM 5.4 MMOL/L (3.5-5.1)
[2023-03-02] MEDS ORDERED: FUROSEMIDE 40 MG TAB PO ONE (07:25)
[2023-03-02] MEDS ORDERED: SODIUM BICARBONATE 8.4% INJ 50ML SYRINGE IV STA (07:36)
[2023-03-02] MEDS: INSULIN LISPRO (NovoLOG) PER UNIT SC SCH ×2 (08:10→12:36)
[2023-03-02] MEDS: MAG SULF 1GM/100ML (MAG RUN) 1 GM in IV 1 EA IV SCH ×2 (08:10→08:59)
[2023-03-02] MEDS: CARVedilol 6.25 MG TAB PO SCH (08:11)
[2023-03-02] MEDS ORDERED: PATIROMER SORBITEX CALCIUM 8.4 GM POWDER PACKET (VELTASSA) PO ONE ×3 (09:00→11:00)
[2023-03-02] MEDS ORDERED: DAPAGLIFLOZIN PROPANEDIOL 10MG TABLET (FARXIGA) PO SCH (10:25)
[2023-03-02] MEDS ORDERED: MAG SULF 1GM/100ML (MAG RUN) 1 GM in IV 1 EA IV ONE (11:00)
[2023-03-02 14:00] VITALS: BP 134/63; TEMP 97.9; O2SAT 100
[2023-03-02 14:42] LABS: MAGNESIUM LEVEL 2.2 MG/DL (1.8-2.4); POTASSIUM SERUM 4.6 MMOL/L (3.5-5.1)
[2023-03-03] MEDS ORDERED: FUROSEMIDE 20 MG TAB PO SCH (09:00)
== END 2023-03-02 15:24 | disposition home or self-care (01) ==
LOC: M ED 11:17 → M ED INP 18:22 → M MSPAV 20:15
PROVIDERS: ADMIT Internal Medicine; ATTEND Internal Medicine
DX: E87.5 Hyperkalemia (principal); U07.1 COVID-19; R53.1 Weakness; I50.20 Unspecified systolic (congestive) heart failure; I11.0 Hypertensive heart disease with heart failure; E11.9 Type 2 diabetes mellitus without complications; I25.10 Atherosclerotic heart disease of native coronary artery without angina pectoris; E83.42 Hypomagnesemia; I44.0 Atrioventricular block, first degree; R19.7 Diarrhea, unspecified; Z95.1 Presence of aortocoronary bypass graft; Z95.2 Presence of prosthetic heart valve; Z79.899 Other long term (current) drug therapy; Z79.82 Long term (current) use of aspirin; Z79.84 Long term (current) use of oral hypoglycemic drugs; Z80.0 Family history of malignant neoplasm of digestive organs; Z66 Do not resuscitate
CPT/HCPCS: 36415; 70450; 71045; 80048; 80076; 81001; 82140; 82550; 82803; 83605; 83735; 83930; 84132; 84443; 85025; 87040; 87426; 93005; 93041; 94760; 96372; 96374; 96375; 97161; 99285; G0378; J1815; J1940; J3475

== ENCOUNTER → 2023-03-15 | Outpatient (CLI) | payer MEDICARE, BC, OTHER ==
[2023-03-15 07:26] LABS: BASO % 0.5 % (0.0-1.0); EOS # 0.2 10^3/uL (0.0-0.5); EOS % 3.4 % (0.0-3.0); HEMATOCRIT 36.8 % (42.0-52.0); HEMOGLOBIN 12.2 g/dl (13.5-17.5); LYMPH # 1.1 10^3/uL (1.5-5.0); LYMPH % 17.8 % (24.0-44.0); MEAN CORPUSCULAR HEMOGLOBIN 32.6 pg (27.0-33.0); MEAN CORPUSCULAR HGB CONC 33.2 g/dl (32.0-36.5); MEAN CORPUSCULAR VOLUME 98.4 fl (80.0-96.0); MONO # 0.7 10^3/uL (0.0-0.8); MONO % 10.6 % (2.0-8.0); NEUTROPHILS # 4.2 10^3/uL (1.5-8.5); NEUTROPHILS % 67.2 % (36.0-66.0); PLATELET COUNT, AUTOMATED 153 10^3/uL (150-450); RED BLOOD COUNT 3.74 10^6/uL (4.30-6.10); WHITE BLOOD COUNT 6.2 10^3/uL (4.0-10.0)
[2023-03-15 07:55] LABS: ALBUMIN 3.8 G/DL (3.2-5.2); ALKALINE PHOSPHATASE 91 U/L (46-116); ALT/SGPT 15 U/L (7.0-40); AST/SGOT 17 U/L (<34); BILIRUBIN,TOTAL 0.5 MG/DL (0.3-1.2); BLOOD UREA NITROGEN 28 MG/DL (9-23); CALCIUM LEVEL 9.7 MG/DL (8.3-10.6); CARBON DIOXIDE LEVEL 27 MMOL/L (20-31); CHLORIDE LEVEL 104 MMOL/L (98-107); CREATININE FOR GFR 1.02 MG/DL (0.70-1.30); GLOMERULAR FILTRATION RATE > 60.0 (>42); GLUCOSE, FASTING 135 MG/DL (74-106); POTASSIUM SERUM 3.9 MMOL/L (3.5-5.1); SODIUM LEVEL 142 MMOL/L (136-145); TOTAL PROTEIN 6.7 G/DL (5.7-8.2)
[2023-03-15 08:33] LABS: HEMOGLOBIN A1c 6.9 % (4.0-6.0)
== END ==
LOC: M LAB 06:07
PROVIDERS: ATTEND Nurse Practitioner Family
DX: E11.69 Type 2 diabetes mellitus with other specified complication (principal); E87.5 Hyperkalemia; U07.1 COVID-19

== ENCOUNTER → 2023-10-07 | Outpatient (CLI) | payer MEDICARE, BC, OTHER ==
[~2023-10-07] MED LIST changes: -DOCU-153 PO; +STOO100C30 PO
[2023-10-07 13:09] LABS: ALBUMIN 3.9 G/DL (3.2-5.2); ALKALINE PHOSPHATASE 108 U/L (46-116); ALT/SGPT 15 U/L (7.0-40); AST/SGOT 12 U/L (<34); BILIRUBIN,TOTAL 1.2 MG/DL (0.3-1.2); BLOOD UREA NITROGEN 22 MG/DL (9-23); CALCIUM LEVEL 9.4 MG/DL (8.3-10.6); CARBON DIOXIDE LEVEL 30 MMOL/L (20-31); CHLORIDE LEVEL 101 MMOL/L (98-107); CREATININE FOR GFR 0.92 MG/DL (0.70-1.30); GLOMERULAR FILTRATION RATE > 60.0 (>42); GLUCOSE, FASTING 222 MG/DL (74-106); POTASSIUM SERUM 4.3 MMOL/L (3.5-5.1); SODIUM LEVEL 139 MMOL/L (136-145); TOTAL PROTEIN 6.7 G/DL (5.7-8.2)
== END ==
LOC: M WUC 11:19
PROVIDERS: ATTEND Internal Medicine Endocrinology, Diabetes & Metabolism
DX: E11.649 Type 2 diabetes mellitus with hypoglycemia without coma (principal)